=== PATIENT | male | born 1995 ===

== ENCOUNTER 2024-02-25 01:22 | Emergency (ER) | payer OTHER, SELFPAY ==
[2024-02-25] VITALS (8 sets, daily range): BP systolic 116–131; BP diastolic 60–83; PULSE 71–119; RESP 14–29; TEMP 37.4–39.2; O2SAT 95–100
--- NOTE | ~2024-02-25 | XR_ITS ---
Clinical Indication: Cough, fever AP and lateral views of the chest: Comparison: None Findings: The lungs are clear, without evidence of focal consolidation or pleural effusion. Cardiome diastinal silhouette is within normal limits. Bones and soft tissues are unremarkable. Impression: Normal chest. Reviewed, dictated and finalized at [facility]. ING MIXER Impression: Normal chest.
--- NOTE | ~2024-02-25 | CT_ITS ---
Clinical Indication: Elevated d-dimer CT Scan of the Chest with Contrast: Technique: Contiguous sections were acquired throughout the chest after intravenous administration of 100 cc of Omnipaque 350. Dose reduction technique was used on this scan by utilizing automated expos ure control and iterative reconstruction technique. The dose-length product (DLP) was 1149.56 mGy-cm. Findings: There is no evidence of any significant mediastinal, hilar or axillary lymphadenopathy. There is no f illing defect in the pulmonary arterial tree to suggest pulmonary embolus. There is no evidence of ao rtic dissection or aneurysm. There is no evidence of pleural or pericardial effusion. There is probable scarring and/or atelectasis in the left upper lobe. There are focal right basilar c alcified pleural plaques. There is a 8mm round right upper lobe pulmonary nodule (axial image 52).. Images through the upper abdomen reveal no abnormalities. Impression: No evidence of pulmonary embolus, aortic dissection, or aortic aneurysm. 8 mm right upper lobe pulmonary nodule. According to Fleischner Society criteria, for a low-risk su ent, recommend follow-up CT scan at 6-12 months, then consider additional 18-[address] For a high- risk patient, follow-up CT scans at both 6-12 months and 18-24 months are recommended. Somewhat discoid left upper lobe scarring and/or atelectasis. Focal calcified right basilar pleural plaques. Reviewed, dictated and finalized at [facility]. MOTOR OPERATOR Impression: No evidence of pulmonary embolus, aortic dissection, or aortic aneurysm. 8 mm right upper lobe pulmonary nodule. According to Fleischner Society criteri a, for a low-risk patient, recommend follow-up CT scan at 6-12 months, then con stone carver additional 18-[address] For a high-risk patient, follow-up CT scans at both 6-12 months and 18-24 months are recommended. Somewhat discoid left upper lobe scarring and/or atelectasis. Focal calcified right basilar pleural plaques.
--- NOTE | 2024-02-25 01:38 | ECG_ITS ---
Test Date: 2024-02-25 01:42:43 Measurements Intervals [place] Rate: 102 P: 6 DC: 152 QRS: -49 QRSD: 109 T: 37 QT: 329 QTc: 429 Interpretive Statements SINUS TACHYCARDIA INCOMPLETE RIGHT BUNDLE BRANCH BLOCK LEFT ANTERIOR FASCICULAR BLOCK [QRS AXIS <= -45, QR IN I, RS IN II] No previous ECG available for comparison Electronically Signed On 02-25-2024 15:15:12 PROMOTIONS PRODUCER by Jose Cruz Landa M.D.
--- NOTE | 2024-02-25 01:40 | ED.GENADULT ---
HPI - General Adult General Chief complaint: Allergic Reaction <MATILDE Villanueva Last Filed: 02/25/24 02:57> Stated complaint: medication allergy, swollen feet/legs, <MATILDE Villanueva Last Filed: 02/25/24 02:57> Time Seen by Provider: 02/25/24 01:29 <MATILDE Villanueva Last Filed: 02/25/24 02:57> History of Present Illness HPI narrative: 28-year-old male transitioning to female presents to the emergency department for lower extremity edema for 12 hours. Patient reports concern for an allergic reaction. States they started azithromycin take the 2nd dose today 12 hours ago and shortly after began developing swelling to the bilateral lower extremities. States her taking azithromycin for diagnosis of pneumonia at urgent care. Reports a cough for approximately 10 days that is productive with green sputum. Reports shortness of breath. Denies chest pain, abdominal pain, nausea vomiting, diarrhea, hemoptysis, history of VTE. Patient is taking spironolactone and estradiol for transition. Denies recent surgeries or hospitalizations, recent travel. Denies lip or tongue swelling, rash. Denies smoking. <MATILDE Villanueva Last Filed: 02/25/24 02:57> Related Data Allergies/adverse reactions: Allergies Allergy/AdvReac Type Severity Reaction Status Date / Time No Known Allergies Allergy Verified 02/25/24 01:29 <Samira Monet PA-C - Last Filed: 02/25/24 02:57> Review of Systems Review of Systems: All systems reviewed & are unremarkable except as noted in HPI and below <MATILDE Villanueva Last Filed: 02/25/24 02:57> Exam Narrative: GENERAL: Anxious-appearing, well-nourished, and in no acute distress. flushed HEAD: Normocephalic, atraumatic. EYES: EOMI. ENT: Nares clear, no rhinorrhea or epistaxis. Mucous membranes moist. NECK: Supple. CHEST: Wheezing and rhonchi throughout all lung fitzgerald. No rales. Patient satting 100% on room air in no distress, speaking in full sentences HEART: Regular rate and rhythm. No murmur heard. Normal peripheral pulses. ABDOMEN: Soft, nontender, nondistended, normal active bowel sounds. EXTREMITIES: Normal range of motion. Nonpitting edema to bilateral ankles SKIN: Warm, dry, no rash. NEURO: No focal deficits. Alert and oriented x3 <Samira Monet PA-C - Last Filed: 02/25/24 02:57> Course INSIDE SALES ADMINISTRATOR/PA Physician Supervision For this patient encounter, I reviewed the INSIDE SALES ADMINISTRATOR or PA documentation, treatment plan, and medical decision making and had [id number] time with this patient. I performed all aspects of the MDM as documented. <Ansley Schaefer MD - Last Filed: 02/25/24 06:12> Vital Signs Vital signs: Vital Signs Temperature 99.5 F 02/25/24 01:30 Pulse Rate 111 H 02/25/24 01:30 Respiratory Rate 21 H 02/25/24 01:30 Blood Pressure 131/83 02/25/24 01:30 Pulse Oximetry 96 02/25/24 01:30 Temperature 99.3 F 02/25/24 04:11 Pulse Rate 71 02/25/24 06:05 Respiratory Rate 14 02/25/24 06:05 Blood Pressure 127/64 02/25/24 06:05 Pulse Oximetry 97 02/25/24 06:05 Oxygen Delivery Room Air 02/25/24 01:59 <Samira Monet PA-C - Last Filed: 02/25/24 02:57> Vital Signs Temperature 99.5 F 02/25/24 01:30 Pulse Rate 111 H 02/25/24 01:30 Respiratory Rate 21 H 02/25/24 01:30 Blood Pressure 131/83 02/25/24 01:30 Pulse Oximetry 96 02/25/24 01:30 Temperature 99.3 F 02/25/24 04:11 Pulse Rate 71 02/25/24 06:05 Respiratory Rate 14 02/25/24 06:05 Blood Pressure 127/64 02/25/24 06:05 Pulse Oximetry 97 02/25/24 06:05 Oxygen Delivery Room Air 02/25/24 01:59 <Ansley Schaefer MD - Last Filed: 02/25/24 06:12> Medical Decision Making MDM Narrative Medical decision making narrative: 28-year-old male transition female presents to the emergency department for swelling to the feet for 12 hours and concerns for an allergic reaction to the 2nd of his with her mass that was taken prior to the onset of swelling. Patient on a Zithromax for diagnosis of pneumonia and urgent care. Triage vitals with tachycardia and tachypnea. Pt febrile at 102.5. Lung sounds are significant for wheezing and rhonchi throughout all lung fitzgerald. See exam above. Lab work is remarkable for no leukocytosis or anemia. Chemistries largely unremarkable. Viral swabs reveal positive COVID test. Chest x-ray shows no acute cardiopulmonary findings. EKG shows sinus tachycardia, ischemic changes. Troponin undetectable. BNP within normal limits. D-dimer obtained given tachycardia, tachypnea and risk factors with estradiol which is elevated to 1.64. CTA chest PE ordered. Patient has received a DuoNeb, Solu-Medrol, Pepcid, Benadryl, Tylenol and IV fluids in the ED. Pending CTA chest PE at time of sign-out to Dr. Schaefer. <Samira Monet PA-C - Last Filed: 02/25/24 02:57> 28-year-old male transition female presents to the emergency department for swelling to the feet for 12 hours and concerns for an allergic reaction to the 2nd of his with her mass that was taken prior to the onset of swelling. Patient on a Zithromax for diagnosis of pneumonia and urgent care. Triage vitals with tachycardia and tachypnea. Pt febrile at 102.5. Lung sounds are significant for wheezing and rhonchi throughout all lung fitzgerald. See exam above. Lab work is remarkable for no leukocytosis or anemia. Chemistries largely unremarkable. Viral swabs reveal positive COVID test. Chest x-ray shows no acute cardiopulmonary findings. EKG shows sinus tachycardia, ischemic changes. Troponin undetectable. BNP within normal limits. D-dimer obtained given tachycardia, tachypnea and risk factors with estradiol which is elevated to 1.64. CTA chest PE ordered. Patient has received a DuoNeb, Solu-Medrol, Pepcid, Benadryl, Tylenol and IV fluids in the ED. Pending CTA chest PE at time of sign-out to Dr. Schaefer. Patient signed out to me pending CT angio chest PE protocol. CT was obtained revealing incidental pulmonary nodules otherwise no acute process. Patient was informed of these findings at bedside and that he will need to have a repeat CT scan to monitor the pulmonary nodule. Patient did test positive for COVID. He was instructed that he needs to follow up with his primary care physician within the next 3-5 days and to return to the ED if any new or worsening symptoms develop. He was discharged in condition. <Ansley Schaefer MD - Last Filed: 02/25/24 06:12> Vital Signs Vital Signs: Vital Signs Temperature 99.5 F 02/25/24 01:30 Pulse Rate 111 H 02/25/24 01:30 Respiratory Rate 21 H 02/25/24 01:30 Blood Pressure 131/83 02/25/24 01:30 Pulse Oximetry 96 02/25/24 01:30 Temperature 99.3 F 02/25/24 04:11 Pulse Rate 71 02/25/24 06:05 Respiratory Rate 14 02/25/24 06:05 Blood Pressure 127/64 02/25/24 06:05 Pulse Oximetry 97 02/25/24 06:05 Oxygen Delivery Room Air 02/25/24 01:59 <Samira Monet PA-C - Last Filed: 02/25/24 02:57> Vital Signs Temperature 99.5 F 02/25/24 01:30 Pulse Rate 111 H 02/25/24 01:30 Respiratory Rate 21 H 02/25/24 01:30 Blood Pressure 131/83 02/25/24 01:30 Pulse Oximetry 96 02/25/24 01:30 Temperature 99.3 F 02/25/24 04:11 Pulse Rate 71 02/25/24 06:05 Respiratory Rate 14 02/25/24 06:05 Blood Pressure 127/64 02/25/24 06:05 Pulse Oximetry 97 02/25/24 06:05 Oxygen Delivery Room Air 02/25/24 01:59 <Ansley Schaefer MD - Last Filed: 02/25/24 06:12> Lab Data Result diagrams: 02/25/24 01:46 02/25/24 01:45 <Samira Monet PA-C - Last Filed: 02/25/24 02:57> Labs: Lab Results 02/25/24 02/25/24 02/25/24 Range/Units 01:45 01:46 04:46 WBC 7.2 (4.5-10.0) K/mm3 RBC 5.11 (4.6-6.20) M/mm3 Hgb 15.4 (14.0-18.0) g/dL Hct 43.2 (42.0-52.0) % MCV 84.5 (80-100) fl MCH 30.1 (26-34) pg MCHC 35.6 (32-36) g/dl RDW 11.8 (11.5-14.5) % Plt Count 205 (150-375) k/mm3 MPV 9.6 (7.4-10.4) fl Immature Gran % (Auto) 0.4 (0-0.5) % Neut % (Auto) 70.6 (45.5-73.1) % Lymph % (Auto) 23.7 (18.3-44.2) % [place] % (Auto) 4.9 (2.6-8.5) % Eos % (Auto) 0.0 (0-4.4) % Baso % (Auto) 0.4 (0.2-1.2) % Lymph # (Auto) 1.70 (0.9-3.2) K/mm3 [place] # (Auto) 0.4 (0.1-0.6) K/mm3 Eos # (Auto) 0.0 (0-0.3) K/mm3 Baso # (Auto) 0.0 (0.0-0.1) K/mm3 Abs Immat Gran (auto) 0.03 (0.00-0.031) K/mm3 Absolute Neuts (auto) 5.1 (1.3-6.7) K/mm3 Absolute Nucleated RBC 0.000 (0.0-0.012) K/mm3 Nucleated RBC % 0.0 (0.0-0.2) % PT 13.8 (11.1-14.7) Seconds INR 1.0 APTT 29.6 (22.3-36.8) Seconds D-Dimer 1.64 H (<0.48) ug/mL Sodium 134 L (137-145) mmol/L Potassium 3.5 (3.4-5.0) mmol/L Chloride 101 (98-107) mmol/L Carbon Dioxide 22 (22-30) mmol/L Anion Gap 11 (4-12) mmol/L BUN 10 (9-20) mg/dL Creatinine 0.79 (0.7-1.3) mg/dL Estim Creat Clear Calc 145 ml/min Estimated GFR > 60 (59 - ) Glucose 107 (65-110) mg/dL Calcium 8.2 L (8.4-10.2) mg/dL Magnesium 2.0 (1.6-2.3) mg/dL Total Bilirubin 0.9 (0.2-1.3) mg/dL AST 48 (17-59) U/L ALT 56 H (6-50) U/L Alkaline Phosphatase 77 (38-126) U/L Troponin I < 0.012 (0.000-0.034) ng/mL NT-Pro-B Natriuret Pep 89 (19.9-100) pg/mL Total Protein 7.0 (6.3-8.2) g/dL Albumin 4.0 (3.5-5.1) g/dL Urine Color Yellow (Yellow) Urine Appearance Clear (Clear) Urine pH 5.5 (5.0-9.0) Ur Specific [place] 1.024 (1.001-1.035) Urine Protein Negative (Negative) mg/dL Urine Glucose (UA) Negative (Negative) mg/dL Urine Ketones Trace H (Negative) mg/dL Ur Blood (Man) Negative (Negative) Urine Nitrate Negative (Negative) Urine Bilirubin Negative (Negative) Urine Urobilinogen 0.2 (<2.0) mg/dL Leukocyte Esterase Rfl Negative (Negative) ELEANOR/UL Influenza A (RT-PCR) Negative (Negative) Influenza B (RT-PCR) Negative (Negative) RSV (RT-PCR) Negative (Negative) SARS-CoV-2 RNA (RT-PCR) Positive A (Negative) <Samira Monet PA-C - Last Filed: 02/25/24 02:57> Lab Results 02/25/24 02/25/24 02/25/24 Range/Units 01:45 01:46 04:46 WBC 7.2 (4.5-10.0) K/mm3 RBC 5.11 (4.6-6.20) M/mm3 Hgb 15.4 (14.0-18.0) g/dL Hct 43.2 (42.0-52.0) % MCV 84.5 (80-100) fl MCH 30.1 (26-34) pg MCHC 35.6 (32-36) g/dl RDW 11.8 (11.5-14.5) % Plt Count 205 (150-375) k/mm3 MPV 9.6 (7.4-10.4) fl Immature Gran % (Auto) 0.4 (0-0.5) % Neut % (Auto) 70.6 (45.5-73.1) % Lymph % (Auto) 23.7 (18.3-44.2) % [place] % (Auto) 4.9 (2.6-8.5) % Eos % (Auto) 0.0 (0-4.4) % Baso % (Auto) 0.4 (0.2-1.2) % Lymph # (Auto) 1.70 (0.9-3.2) K/mm3 [place] # (Auto) 0.4 (0.1-0.6) K/mm3 Eos # (Auto) 0.0 (0-0.3) K/mm3 Baso # (Auto) 0.0 (0.0-0.1) K/mm3 Abs Immat Gran (auto) 0.03 (0.00-0.031) K/mm3 Absolute Neuts (auto) 5.1 (1.3-6.7) K/mm3 Absolute Nucleated RBC 0.000 (0.0-0.012) K/mm3 Nucleated RBC % 0.0 (0.0-0.2) % PT 13.8 (11.1-14.7) Seconds INR 1.0 APTT 29.6 (22.3-36.8) Seconds D-Dimer 1.64 H (<0.48) ug/mL Sodium 134 L (137-145) mmol/L Potassium 3.5 (3.4-5.0) mmol/L Chloride 101 (98-107) mmol/L Carbon Dioxide 22 (22-30) mmol/L Anion Gap 11 (4-12) mmol/L BUN 10 (9-20) mg/dL Creatinine 0.79 (0.7-1.3) mg/dL Estim Creat Clear Calc 145 ml/min Estimated GFR > 60 (59 - ) Glucose 107 (65-110) mg/dL Calcium 8.2 L (8.4-10.2) mg/dL Magnesium 2.0 (1.6-2.3) mg/dL Total Bilirubin 0.9 (0.2-1.3) mg/dL AST 48 (17-59) U/L ALT 56 H (6-50) U/L Alkaline Phosphatase 77 (38-126) U/L Troponin I < 0.012 (0.000-0.034) ng/mL NT-Pro-B Natriuret Pep 89 (19.9-100) pg/mL Total Protein 7.0 (6.3-8.2) g/dL Albumin 4.0 (3.5-5.1) g/dL Urine Color Yellow (Yellow) Urine Appearance Clear (Clear) Urine pH 5.5 (5.0-9.0) Ur Specific [place] 1.024 (1.001-1.035) Urine Protein Negative (Negative) mg/dL Urine Glucose (UA) Negative (Negative) mg/dL Urine Ketones Trace H (Negative) mg/dL Ur Blood (Man) Negative (Negative) Urine Nitrate Negative (Negative) Urine Bilirubin Negative (Negative) Urine Urobilinogen 0.2 (<2.0) mg/dL Leukocyte Esterase Rfl Negative (Negative) ELEANOR/UL Influenza A (RT-PCR) Negative (Negative) Influenza B (RT-PCR) Negative (Negative) RSV (RT-PCR) Negative (Negative) SARS-CoV-2 RNA (RT-PCR) Positive A (Negative) <Ansley Schaefer MD - Last Filed: 02/25/24 06:12> Discharge Plan Discharge Clinical Impression: COVID-19 <Samira Monet PA-C - Last Filed: 02/25/24 02:57> Patient Disposition: Home, Self-Care <Samira Monet PA-C - Last Filed: 02/25/24 02:57> Condition: Improved <Samira Moent PA-C - Last Filed: 02/25/24 02:57> Instructions: Antibiotic Form, COVID-19 (Coronavirus Disease 2019) (ED) <Samira Monet PA-C - Last Filed: 02/25/24 02:57> Additional Instructions: Please follow-up with your family doctor within the next 3-5 days may return to the emergency department for new or worsening symptoms develop. <Samira Monet PA-C - Last Filed: 02/25/24 02:57> Patient Language: Scottish <Samira Monet PA-C - Last Filed: 02/25/24 02:57> Follow-up/Referrals: PHYSICIAN,RN HEMODIALYSIS CHARGE [Primary Care Provider] - Alistair Perez MD [Physician] - 3 Days <Samira Monet PA-C - Last Filed: 02/25/24 02:57> Time of Disposition: 06:10 <Samira Monet PA-C - Last Filed: 02/25/24 02:57> 06:10 <Ansley Schaefer MD - Last Filed: 02/25/24 06:12>
[2024-02-25] MEDS: ACETAMINOPHEN 500 MG TABLET 1000 MG PO (01:47)
[2024-02-25] MEDS: diphenhydrAMINE HCl INJ 50 MG/ML VIAL 25 MG IV PUSH (01:48)
[2024-02-25] MEDS: IPRATROPIUM 0.5 MG/ALBUTEROL SULFATE 2.5 MG AMPUL.NEB 3 ML INHALATION (01:48)
[2024-02-25] MEDS: FAMOTIDINE 20 MG/2 ML VIAL IV PUSH (01:48)
[2024-02-25] MEDS: methylPREDNISolone SOD SUCC 125 MG VIAL IV PUSH (01:49)
[2024-02-25 01:54] LABS: Basophils Percent Auto 0.4 % (0.2-1.2); Hematocrit 43.2 % (42.0-52.0); Hemoglobin 15.4 g/dL (14.0-18.0); Immature Granulocyte Absolute 0.03 K/mm3 (0.00-0.031); Immature Granulocyte Percent A 0.4 % (0-0.5); Lymphocytes Percent Auto 23.7 % (18.3-44.2); Mean Corpuscular HGB Conc 35.6 g/dl (32-36); Mean Corpuscular Hemoglobin 30.1 pg (26-34); Mean Corpuscular Volume 84.5 fl (80-100); Mean Platelet Volume 9.6 fl (7.4-10.4); Monocytes Absolute Auto 0.4 K/mm3 (0.1-0.6); Monocytes Percent Auto 4.9 % (2.6-8.5); Neutrophils Absolute Auto 5.1 K/mm3 (1.3-6.7); Neutrophils Percent Auto 70.6 % (45.5-73.1); Platelet Count Result 205 k/mm3 (150-375); Red Blood Count 5.11 M/mm3 (4.6-6.20); Red Cell Distribution Width 11.8 % (11.5-14.5); White Blood Count 7.2 K/mm3 (4.5-10.0)
[2024-02-25 02:07] LABS: Alanine Aminotransferase 56 U/L (6-50); Alkaline Phosphatase 77 U/L (38-126); Anion Gap 11 mmol/L (4-12); Aspartate Amino Transferase 48 U/L (17-59); Bilirubin,Total 0.9 mg/dL (0.2-1.3); Blood Urea Nitrogen 10 mg/dL (9-20); Calcium 8.2 mg/dL (8.4-10.2); Carbon Dioxide 22 mmol/L (22-30); Chloride 101 mmol/L (98-107); Estimated CRCL calculation 145 ml/min; Estimated Glomerular Filt Rate > 60; Glucose 107 mg/dL (65-110); Potassium 3.5 mmol/L (3.4-5.0); Sodium 134 mmol/L (137-145)
[2024-02-25 02:10] LABS: Partial Thromboplastin Time 29.6 Seconds (22.3-36.8); Prothrombin Time 13.8 Seconds (11.1-14.7)
[2024-02-25 02:17] LABS: NT Pro B Type Natriuretic Pept 89 pg/mL (19.9-100)
[2024-02-25 02:19] LABS: Troponin I < 0.012 ng/mL (0.000-0.034)
[2024-02-25 02:28] LABS: D Dimer 1.64 ug/mL (<0.48)
[2024-02-25 02:30] LABS: Influenza A QL RT-PCR Negative (Negative); Influenza B QL RT-PCR Negative (Negative); RSV RNA, RT-PCR Negative (Negative); SARS-CoV-2 RNA PCR Positive (Negative)
[2024-02-25] MEDS: SODIUM CHLORIDE 0.9% IV 1,000 ML 999 ML IV CONT (02:49)
[2024-02-25 04:57] LABS: Add Urine Microscopic? NO; Appearance Urine Clear (Clear); Bilirubin Urine Negative (Negative); Blood Urine Negative (Negative); Color Urine Yellow (Yellow); Glucose Urine UA Negative (Negative); Ketones Urine Trace mg/dL (Negative); Leukocyte Esterase Ur Negative LEU/UL (Negative); Nitrate Urine Negative (Negative); Protein Urine Negative (Negative); Specific Grav Ur 1.024 (1.001-1.035); Urobilinogen Urine 0.2 mg/dL (<2.0); pH Urine 5.5 (5.0-9.0)
== END 2024-02-25 06:42 | disposition home or self-care (01) ==
PROVIDERS: Physician Assistant; Emergency Provider Emergency Medicine
DX: U07.1 COVID-19 (principal)
CPT/HCPCS: 36415; 71046; 71275; 80053; 81003; 83735; 83880; 84484; 85025; 85380; 85610; 85730; 87637; 93005; 94640; 96361; 96374; 96375; 99284; A9270; J1200; J2919; J7030; Q9967